=== PATIENT | male | born 1995 | race Two or more races ===

== ENCOUNTER 2022-12-02 13:56 | Emergency (ER) | payer SELFPAY ==
[2022-12-02 14:36] VITALS: BP 100/66; PULSE 88; RESP 18; TEMP 98.7; BMI 23.0
[2022-12-02] MEDS ORDERED: KETOROLAC TROMETHAMINE 30 MG/1 ML VIAL IM ONE (16:55)
[2022-12-02] MEDS ORDERED: LIDOCAINE 5% TOPICAL PATCH TP ONE (16:55)
[2022-12-02] MEDS ORDERED: KETOROLAC TROMETHAMINE 30 MG/1 ML VIAL ONE (16:57)
[2022-12-02] MEDS ORDERED: LIDOCAINE 5% TOPICAL PATCH ONE (16:57)
[2022-12-02] MEDS ORDERED: LIDOCAINE PATCH REMOVAL MC SCH (22:00)
== END 2022-12-02 19:11 | disposition home or self-care (01) ==
LOC: JERFT 13:56
PROC: 3E023GC Introduction of Other Therapeutic Substance into Muscle, Percutaneous Approach (ICD-10-PCS; principal; 2022-12-02)
DX: M54.42 Lumbago with sciatica, left side (principal)
CPT/HCPCS: 72100-TC-FY; 99284-25

== ENCOUNTER 2023-11-07 10:31 | Emergency (ER) | payer OTHER ==
[2023-11-07 11:02] VITALS: BP 106/70; PULSE 97; RESP 18; TEMP 98.3; BMI 21.1
[2023-11-07 12:39] LABS: PH,URINE 8.5 (5.0-8.0); URINE APPEARANCE CLEAR; URINE BILIRUBIN NEGATIVE (NEGATIVE); URINE COLOR YELLOW; URINE GLUCOSE (UA) NEGATIVE (NEGATIVE); URINE KETONE NEGATIVE (NEGATIVE); URINE LEUK ESTERASE NEGATIVE (NEGATIVE); URINE NITRITE NEGATIVE (NEGATIVE); URINE PROTEIN NEGATIVE (NEGATIVE); URINE UROBILINOGEN 0.2 mg/dL (0.2-1.0)
[2023-11-07 13:47] LABS: BASO % 0.6 % (0-2.0); EOS % 11.6 % (0-4.5); HEMATOCRIT 45.1 % (35.4-49); HEMOGLOBIN 14.6 GM/dL (11.7-16.9); LYMPH % 23.3 % (8-40); MCH 27.4 pg (25.7-33.7); MCHC 32.3 g/dl (32.0-35.9); MEAN CELL VOLUME 84.6 fl (80-96); MEAN PLT VOLUME 7.9 fl (7.5-11.1); MONO % 4.7 % (3.8-10.2); NEUT % 59.8 % (42.8-82.8); PLATELET COUNT 306 10^3/uL (134-434); RBC 5.33 M/mm3 (4.00-5.60); RDW 13.9 % (11.9-15.9); WHITE BLOOD COUNT 8.2 K/mm3 (4.0-10.0)
[2023-11-07 14:09] LABS: POTASSIUM 4.5 mmol/L (3.5-5.1)
[2023-11-07 14:11] LABS: CALCIUM 8.7 mg/dL (8.5-10.1)
[2023-11-07 14:12] LABS: ALBUMIN 3.6 g/dl (3.4-5.0); BLOOD UREA NITROGEN 11.8 mg/dL (7-18)
[2023-11-07 14:15] LABS: CREATININE 0.8 mg/dL (0.55-1.3)
[2023-11-07 14:17] LABS: BILIRUBIN,TOTAL 0.3 mg/dL (0.2-1)
[2023-11-07] MEDS ORDERED: IBUPROFEN 600 MG TABLET (FP) PO ONE (15:35)
== END 2023-11-07 16:32 | disposition home or self-care (01) ==
LOC: JER 10:31
DX: R10.9 Unspecified abdominal pain (principal); R30.0 Dysuria; R10.2 Pelvic and perineal pain
CPT/HCPCS: 36415; 74177-TC; 80053; 81003; 85025; 87086; 87491; 87591; 99285-25; Q9967